=== PATIENT | male | born 1960 | race Caucasian/White ===

== ENCOUNTER 2020-11-04 13:59 | Inpatient (IN) | payer OTHER ==
[~2020-11-04] VITALS: Ht 170.2 cm; Wt 74.8 kg
[2020-11-04 14:20] VITALS: BP 120/63
[2020-11-04] MEDS ORDERED: PREDNISONE 5 MG5 M1 PO (14:55)
[2020-11-04] MEDS ORDERED: XELJANZ XR11 MG PO (14:55)
[2020-11-04] MEDS ORDERED: NORVASC10 MG PO (14:55)
[2020-11-04] MEDS ORDERED: LISINOPRIL20 MG PO (14:55)
[2020-11-04] MEDS ORDERED: DILAUDID1 MG/1 M1 PO (14:56)
[2020-11-04 15:09] LABS: MCV 92.9 fL (80.0-100.0); MONOCYTES 6.6 % (1.0-8.0); WBC 13.2 thou/uL (4.0-11.0)
[2020-11-04 15:11] LABS: ABSOLUTE NEUTROPHILS 11.4 thou/uL (1.4-8.2); BASOPHILS 0.3 % (0.0-2.0); LYMPHOCYTES 6.5 % (24.0-44.0); MCH 29.4 pg (26.0-34.0); MCHC 31.6 g/dL (28.0-37.0); PLATELET COUNT 202 thou/uL (150-400); POLYS 86.6 % (36.0-66.0); RBC 1.84 mil/uL (4.50-6.00); RDW 17.5 % (10.5-14.5)
[2020-11-04 15:13] LABS: CALCIUM 9.1 mg/dL (8.5-10.1); CREATININE 0.9 mg/dL (0.7-1.3); POTASSIUM 3.6 mmol/L (3.5-5.1)
[2020-11-04 15:19] LABS: ALBUMIN 3.1 g/dL (3.4-5.0); DIRECT BILIRUBIN 0.4 mg/dL (<0.1-0.2); TOTAL BILIRUBIN 0.8 mg/dL (0.2-1.0); TOTAL PROTEIN 7.5 g/dL (6.4-8.2)
[2020-11-04 15:23] LABS: HEMATOCRIT 17.1 % (42.0-52.0); HEMOGLOBIN 5.4 gm/dL (14.0-18.0); INR 1.14; PROTIME 12.4 Seconds (9.3-11.4)
[2020-11-04 15:25] LABS: APTT < 20.0 Seconds (24.5-32.8)
[2020-11-04 17:16] LABS: % SATURATION 6 % (20-39); IRON 26 ug/dL (65-175); TIBC 433 ug/dL (250-450)
[2020-11-04 18:08] LABS: FOLIC ACID 31.8 ng/mL (8.6-58.9)
[2020-11-04 18:59] VITALS: BP 137/88
[2020-11-04 19:21] VITALS: BP 129/76
[2020-11-04 19:55] VITALS: BP 135/72
[2020-11-04 20:18] VITALS: BP 141/88
[2020-11-04 23:39] VITALS: BP 134/88; BP 141/88; BP 157/89
--- NOTE | 2020-11-04 23:53 | NUR ---
ADMITTED TO THE UNIT AT APROXIMATELY 2030. PT IS A/O X4 AND IS UP WITH SBA TO THE BR. GIVEN A URINAL TO USE AT THE BEDSIDE. SR/ST ON THE MONITOR. VSS. AFEBRILE. C/O CHRONIC GENERALIZED BILATERAL LE PAIN. SCHEDULED PAIN MEDICATION GIVEN DIRECTED. CURRENTLY ON 2ND BLOOD TRANSFUSION AND IS TOLERATING WELL. FALL PRECAUTIONS IMPLEMENTED, CALL LIGHT IS WITHIN REACH.
[2020-11-05 01:06] LABS: GLYCOHEMOGLOBIN (HGB A1C) 8.1 % (4.8-5.6)
[2020-11-05 04:06] LABS: HEMATOCRIT 22.9 % (42.0-52.0); MCH 28.7 pg (26.0-34.0); MCHC 32.4 g/dL (28.0-37.0); MCV 88.5 fL (80.0-100.0); RBC 2.58 mil/uL (4.50-6.00); WBC 14.2 thou/uL (4.0-11.0)
[2020-11-05 04:07] LABS: HEMOGLOBIN 7.4 gm/dL (14.0-18.0)
[2020-11-05 07:44] VITALS: BP 138/83
--- NOTE | 2020-11-05 11:38 | NUR ---
PT ADMITTED RELATED TO GI BLEED. CM REVIEWED CHART AND SPOKE [facility] CARE TEAM. CM MET WITH PT AT BEDSIDE THIS DAY. PT APPEARED TO BE A&O X4. CM ROLE INTRODUCED. PT INDICATED HE RESIDES IN A HOUSE WITH HIS SPOUSE WITH TWO STEPS TO ENTER AND NO STEPS INISDE. PT INDICATED HE OCCASIONLLY USES A CANE IN THE COMMUNITY. PT INIDCATED NO HH HX BUT THAT HE HAD DONE OP THERAPY IN THE PAST. PT SEES PHYSICIAN AT [facility] FOR PCP HIS CONSUMER AFFAIRS DIRECTOR IS DR. TANIA BYNUM. PT INDICATED HE PLANS TO RETURN HOME ONCE MEDICALLY STABLE. PT HAVING AN EGD THIS DAY. CM FOLLOWING REGARDING DC PLANNING.
[2020-11-05 15:22] VITALS: BP 120/67
[2020-11-05 19:41] VITALS: BP 121/78
--- NOTE | 2020-11-06 04:02 | NUR ---
Assumed pt care at 1900. A/OX4,VSS,pleasant. Pt finished bowel prep on a timely manner, having loose light brown stools at this time.Up ad mario with IV pole encouraged to call for help as needed. C/o pain to BLE,medicated per EMAR with some relief reported. Pt has been NPO since midnight, IVF/protonix infusing w/o any problems. ST/SR on telemetry. Resting quietly right now w/o any distress,will continue to monitor pt.
[2020-11-06 07:23] VITALS: BP 132/82
[2020-11-06 09:05] VITALS: BP 138/33
[2020-11-06 09:07] VITALS: BP 138/13
[2020-11-06 09:15] VITALS: BP 168/75
[2020-11-06 09:41] LABS: HEMATOCRIT 20.9 % (42.0-52.0); HEMOGLOBIN 6.7 gm/dL (14.0-18.0)
[2020-11-06 09:43] VITALS: BP 130/75
[2020-11-06 10:00] VITALS: BP 123/75
[2020-11-06 10:14] LABS: URINE BILIRUBIN NEGATIVE (Negative); URINE BLOOD NEGATIVE (Negative); URINE CLARITY CLEAR; URINE COLOR ORANGE; URINE GLUCOSE-RANDOM* NEGATIVE (Negative); URINE KETONES NEGATIVE (Negative); URINE LEUKOCYTES-REFLEX NEGATIVE (Negative); URINE NITRITE-REFLEX NEGATIVE (Negative); URINE PROTEIN (DIPSTICK) NEGATIVE (Negative); URINE SPECIFIC GRAVITY 1.025 (1.005-1.035); URINE UROBILINOGEN 0.2 E.U./dl (0.2-1.0)
--- NOTE | 2020-11-06 11:37 | NUR ---
Pt was mona down to OR at shift change for an EGD. Came back post op vs stable, pt requested to go AMA he i fully aware of his actions and what it entails to go AMA. Informed pt that he Hgb was low and woulld require a blood trasnfusion, pt still opted to go AMA. MD informed, MD to speak to pt. IV removed as requested by pt, AMA documentation signed. Pt is waiting for to pick him up.
--- NOTE | 2020-11-06 12:10 | NUR ---
CARE TEAM INDICATED THAT THEY ANTICIPATED THAT PT WOULD LIKELY BE MEDICALLY STABLE TO DC HOME THIS DAY. SHE HAD ORDERED SOME FOLLOW UP LABS. PT INDICATED THAT HE WANTED TO LEAVE SOONER. PT LEFT AMA. NO OTHER CM INTERVENTION INDICATED. CASE CLOSED.
--- NOTE | 2020-11-08 14:07 | PATH ---
[facility] [address] [place] [address] PATHOLOGY RPT PROCEDURE Name: LORENA LAFLEUR Room #: 453-P DIS IN M.R.#: [id number] Admission: 11/04/20 Date of : 60 Discharge: 11/06/20 Report #: [id number] Path Case #: [id number] [facility] Accession Number: [id number] . 01 Material submitted: . colon - TRANSVERSE COLON POLYP. Modifiers: transverse . 01 Clinical history: . COLONOSCOPY . . 02 Diagnosis: Transverse colon polyp, endoscopic biopsy: - Tubular adenoma. - Negative for high-grade dysplasia. (IUV:pit 11/08/2020) QTP 11/08/2020 1100 Local . 02 Electronically signed: . Yen Lubin MD, Pathologist NPI- [id number] . 01 Gross description: . The specimen is received in formalin, labeled "Lorena Lafleur, transverse colon polyp". Received are two segments of pale louie tissue measuring 0.5 and 0.6 cm in maximum dimensions. The specimen is submitted entirely in cassette A1. (CAA; 11/07/2020) QAC/QAC 11/07/2020 1225 Local . 02 Pathologist provided ICD-10: D12.3 . 02 CPT . 384264 Specimen Comment: A courtesy copy of this report has been sent to [phone] Specimen Comment: [phone], Specimen Comment: Report sent to ,DR BYNUM / DR MA Performed at: 01 [facility] [address] [place] [address] [address], [place], [place] [id number] MD Thaddeus Pitts MD Phone: [phone] Performed at: [address] [id number] MD Yen Lubin MD Phone: [phone]
== END 2020-11-06 11:45 | disposition home or self-care (01) | DRG 368 ==
LOC: ER 13:59 → EROBS 16:35 → 4W 16:35
PROVIDERS: Emergency Medicine; Hospitalist; Nurse Practitioner; ADMIT Hospitalist; ATTEND Hospitalist
PROC: 30243N1 Transfusion of Nonautologous Red Blood Cells into Central Vein, Percutaneous Approach (ICD-10-PCS; 2020-11-04)
PROC: 0DJ08ZZ Inspection of Upper Intestinal Tract, Via Natural or Artificial Opening Endoscopic (ICD-10-PCS; principal; 2020-11-05)
PROC: 0DBL8ZZ Excision of Transverse Colon, Via Natural or Artificial Opening Endoscopic (ICD-10-PCS; 2020-11-06)
DX: K21.01 Gastro-esophageal reflux disease with esophagitis, with bleeding (principal); K57.31 Diverticulosis of large intestine without perforation or abscess with bleeding; R65.11 Systemic inflammatory response syndrome (SIRS) of non-infectious origin with acute organ dysfunction; D62 Acute posthemorrhagic anemia; R19.5 Other fecal abnormalities; K44.9 Diaphragmatic hernia without obstruction or gangrene; M06.9 Rheumatoid arthritis, unspecified; I10 Essential (primary) hypertension; D12.3 Benign neoplasm of transverse colon; M34.9 Systemic sclerosis, unspecified; L40.50 Arthropathic psoriasis, unspecified; E11.9 Type 2 diabetes mellitus without complications; F12.90 Cannabis use, unspecified, uncomplicated; Z20.822 Contact with and (suspected) exposure to COVID-19; Z79.899 Other long term (current) drug therapy; Z72.89 Other problems related to lifestyle
CPT/HCPCS: 10045; 62110; 62900; 70005